=== PATIENT | female | born 1950 | race Caucasian/White ===

== ENCOUNTER 2017-07-19 13:00 | Emergency (ER) | payer OTHER, MEDICAID ==
--- NOTE | 2017-07-19 13:36 | ED Physician Chart ---
ED Chief Complaint/HPI - Patient Information Date Seen:: 07/19/17 Time Seen:: 13:31 Chief Complaint:: Chronic back pain History of Present Illness:: 67 yo female had chronic back pain for 5 years. She had been on oxycodone 15mg q6h. The patient ran out of medication 3 days ago and her primary care physician was out of town. She requested some pain medication. The patient sated back pain level at 10/10, denied any pain, numbness or tingling in legs. Allergies:: Allergies Allergy/AdvReac Type Severity Reaction Status Date / Time No Known Allergies Allergy Verified 07/19/17 13:10 Vitals:: Vital Signs - 8 hr 07/19/17 13:10 Temp 98.1 F HR 77 RR 16 BP 142/87 O2 Sat % 98 ED Past Medical History - Past Medical History Past Medical History: HTN (Skin cancer removal), Other (HCV, cirrhosis, chronic back pain) Social History: Non Smoker, No Alcohol, No Drug Use Surgical History: other (varicoce veins surgery, removal of skin cancer on face) Family Medical History - Family Member Mother Hx Family Hypertension: No Hx Family Diabetes: No Hx Family Seizures: No Hx Family AIDS: No Hx Family HIV: No Hx Family COPD: No Hx Family Tuberculosis: No ED Physical Exam - Physical Examination Other Gen/Cons comments:: Patient refused bending or rotating back ED Septic Shock - <6hrs of presentation: Vital Signs: Vital Signs - 8 hr 07/19/17 13:10 Temp 98.1 F HR 77 RR 16 BP 142/87 O2 Sat % 98
== END 2017-07-19 14:15 | disposition home or self-care (01) ==
LOC: ER 13:00
DX: G89.29 Other chronic pain (principal); M54.9 Dorsalgia, unspecified; I10 Essential (primary) hypertension
CPT/HCPCS: 99283; 96372; J1885; Z7502